=== PATIENT | male | born 1980 | race African-American/Black ===

== ENCOUNTER 2025-03-03 00:13 | Emergency (ER) | payer MEDICAID ==
[~2025-03-03] VITALS: Ht 175.3 cm; Wt 94.1 kg
[2025-03-03 00:43] VITALS: O2SAT 99
[2025-03-03] MEDS ORDERED: BUTE12CR2 TP (01:06)
[2025-03-03] MEDS ORDERED: DOXY100C5 MT (01:06)
[2025-03-03 01:14] VITALS: BP 155/88; PULSE 63; RESP 15; TEMP 36.9; O2SAT 100
[2025-03-03 01:18] LABS: CREATININE 1.2 mg/dL (0.6-1.3); UREA NITROGEN BLOOD 23 mg/dL (9-23)
[2025-03-03] MEDS: DOXYCYCLINE HYCLATE 100MG CAPSULE PO ONE (01:20)
[2025-03-03 01:23] LABS: BASOPHILS % 1.3 % (0.0-2.0); EOSINOPHILS % 2.7 % (0.0-5.0); HEMATOCRIT. 40.3 % (42.0-52.0); HEMOGLOBIN. 13.2 g/dL (14.0-18.0); LYMPHOCYTES % 30.0 % (20.0-50.0); MEAN PLATELET VOLUME 9.2 fl (7.4-10.4); MONOCYTES % 8.9 % (2.0-8.0); NEUTROPHILS % 57.1 % (40.0-76.0); PLATELET 211 x1000/uL (130-400); RED BLOOD CELL COUNT 4.42 mill/uL (4.7-6.1); RED CELL DISTRIBUTION WIDTH 14.8 % (11.6-14.6)
== END 2025-03-03 01:25 | disposition home or self-care (01) ==
LOC: ER 00:13
DX: L03.116 Cellulitis of left lower limb (principal)
CPT/HCPCS: 36415; 80048; 85025; 99283